=== PATIENT | male | born 1960 | race Hispanic/Latino ===

== ENCOUNTER 2016-06-03 10:13 | Emergency (ER) | payer MEDICARE ==
[2016-06-03] MEDS ORDERED: MOTRIN PO ONE (14:45)
--- NOTE | 2016-06-03 14:45 | Emergency Department Report ---
ED General Adult HPI - General Chief complaint: Neck Pain/Injury Stated complaint: RT SIDE NECK PAIN/NUMBNESS/WEAKNESS/PX IN RT ARM Time Seen by Provider: 06/03/16 14:11 Source: patient Mode of arrival: Ambulatory Limitations: No Limitations - History of Present Illness Initial comments: 55-year-old male comes and reports of neck pain stated that he gets shooting pain burning pains down his right arm. This has been present for about a month and a half. Patient denies any recent trauma as he reports that he is retired from being construction carpenters helper. Patient denies any change of vision no headache. She currently takes no medications no past medical history. Reports he has not seen a primary provider in greater than 5 years. She also complains of a tick bite to his left thigh. He denies any pain or discharge. -: month(s) (1.5) - Related Data Previous Rx's Medication Instructions Recorded Last Taken Type Metaxalone [Skelaxin] 800 mg PO TID #30 tablet 07/07/14 Unknown Rx oxyCODONE /ACETAMINOPHEN [Percocet 1 tab PO Q6HR PRN #20 tablet 07/07/14 Unknown Rx 5/325] Cyclobenzaprine HCl [Flexeril 5mg] 5 mg PO Q6HR #15 tablet 08/23/14 Unknown Rx Ibuprofen [Motrin 800 MG tab] 800 mg PO Q8H PRN #30 tablet 08/23/14 Unknown Rx Amoxicillin/K Clav Tab [Augmentin 1 tab PO BID #20 tablet 12/06/14 Unknown Rx 875MG TAB] Ibuprofen [Motrin 800 MG tab] 800 mg PO TID PRN #30 tablet 12/06/14 Unknown Rx traMADol [Ultram 50 MG tab] 50 mg PO Q6HR PRN #14 tablet 12/06/14 Unknown Rx Cyclobenzaprine [Flexeril] 10 mg PO TID #15 tablet 12/26/15 Unknown Rx Ibuprofen [Motrin 600 MG tab] 600 mg PO Q8H PRN #60 tablet 06/03/16 Unknown Rx Allergies Allergy/AdvReac Type Severity Reaction Status Date / Time codeine Allergy Itching Verified 07/07/14 17:49 gabapentin [From Neurontin] Allergy Anaphylaxis Verified 06/03/16 10:25 ED Review of Systems ROS: Stated complaint: RT SIDE NECK PAIN/NUMBNESS/WEAKNESS/PX IN RT ARM Other details as noted in HPI ED Past Medical Hx - Past Medical History Previous Medical History?: Yes Hx COPD: Yes Additional medical history: emphysema. CHRONIC BACK/HIP PAIN - Surgical History Past Surgical History?: Yes Additional Surgical History: total left hip replacement, right leg surgery - Social History Smoking Status: Current Every Day Smoker Substance Use Type: None - Medications Home Medications: Home Medications Medication Instructions Recorded Confirmed Last Taken Type Metaxalone [Skelaxin] 800 mg PO TID #30 tablet 07/07/14 Unknown Rx oxyCODONE /ACETAMINOPHEN [Percocet 1 tab PO Q6HR PRN #20 tablet 07/07/14 Unknown Rx 5/325] Cyclobenzaprine HCl [Flexeril 5mg] 5 mg PO Q6HR #15 tablet 08/23/14 Unknown Rx Ibuprofen [Motrin 800 MG tab] 800 mg PO Q8H PRN #30 tablet 08/23/14 Unknown Rx Amoxicillin/K Clav Tab [Augmentin 1 tab PO BID #20 tablet 12/06/14 Unknown Rx 875MG TAB] Ibuprofen [Motrin 800 MG tab] 800 mg PO TID PRN #30 tablet 12/06/14 Unknown Rx traMADol [Ultram 50 MG tab] 50 mg PO Q6HR PRN #14 tablet 12/06/14 Unknown Rx Cyclobenzaprine [Flexeril] 10 mg PO TID #15 tablet 12/26/15 Unknown Rx Ibuprofen [Motrin 600 MG tab] 600 mg PO Q8H PRN #60 tablet 06/03/16 Unknown Rx ED Physical Exam - General Limitations: No Limitations General appearance: alert, in no apparent distress - Head Head exam: Present: atraumatic, normocephalic - Eye Eye exam: Present: PERRL, EOMI Pupils: Present: normal accommodation - Neck Neck exam: Present: normal inspection, tenderness (paracervical tenderness to the right elicits pain down the right arm), full ROM - Respiratory Respiratory exam: Present: normal lung sounds bilaterally - Cardiovascular Cardiovascular Exam: Present: regular rate, normal rhythm, normal heart sounds - Expanded Upper Extremity Exam Right Shoulder Exam: Present: normal inspection, full ROM. Absent: tenderness, swelling, deformity Elbow exam: Present: normal inspection, full ROM. Absent: tenderness Neurosensory exam: Present: 2-point discrimination, radial nerve intact, ulnar nerve intact, median nerve intact - Neurological Exam Neurological exam: Present: alert, oriented X3, normal gait, motor sensory deficit, reflexes normal - Expanded Neurological Exam Expanded Cranial nerves: EOM's Intact: Normal, Gag Reflex: Normal, Tongue Deviation: Normal Cerebellar function: Finger to Nose: Normal, Heel to Burnette: Normal, Romberg: Normal Motor strength exam: RUE: 3, LUE: 4, RLE: 5, LLE: 5 - Psychiatric Psychiatric exam: Present: normal affect, normal mood - Skin Skin exam: Present: warm, dry, intact - Other Other exam information: Quarter size left thighs necrotic center with erythematous base non-indurated nontender no discharge lesion. ED Course Vital Signs 06/03/16 06/03/16 10:25 16:15 Temperature 98.3 F Pulse Rate 99 H 87 Respiratory 20 20 Rate Blood Pressure 143/80 Blood Pressure 148/86 [Right] O2 Sat by Pulse 98 98 Oximetry - Reevaluation(s) Reevaluation #1: 06/03/16 15:59 Reports he feels somewhat better after having pain medication. ED Medical Decision Making - Lab Data Vital Signs 06/03/16 10:25 Temperature 98.3 F Pulse Rate 99 H Respiratory 20 Rate Blood Pressure 143/80 O2 Sat by Pulse 98 Oximetry - Radiology Data Radiology results: report reviewed, image reviewed FINDINGS: Prevertebral soft tissues are without swelling. No evidence of cervical fracture or vertebral compression. Degenerative changes are multilevel at the vertebral endplates, facet joints, and uncinate joints. Nonspecific small fluid level in left sphenoid sinus. Anterolisthesis: None. Retrolisthesis: C2-3 slight, C3-4 slight Disc narrowing: C2-3 slight, C3-4 moderate, C6-7 slight Vertebral endplate, uncinate, and facet degenerative hypertrophic change is associated with left C2-3 and right C3-4 osseous neural foraminal stenosis. IMPRESSION: No acute skeletal pathology in the cervical spine Multilevel degenerative change, slight retrolisthesis, and disc narrowing Nonspecific fluid level in left sphenoid sinus may reflect acute sinusitis Critical care attestation.: If time is entered above; I have spent that time in minutes in the direct care of this critically ill patient, excluding procedure time. ED Disposition Clinical Impression: DJD (degenerative joint disease) of cervical spine Qualifiers: Spinal osteoarthritis complication: with radiculopathy Qualified Code(s): M47.22 - Other spondylosis with radiculopathy, cervical region Disposition: DISCHARGED TO HOME OR SELFCARE Is pt being admited?: No Does the pt Need Aspirin: No Condition: Stable Instructions: Cervical Spinal Stenosis (ED), Degenerative Disc Disease (ED) Additional Instructions: Medication as prescribed follow up with the neurologist orthopedic and primary care provider. Prescriptions: Ibuprofen [Motrin 600 MG tab] 600 mg PO Q8H PRN #60 tablet PRN Reason: Pain Referrals: PRIMARY CAREMD [Primary Care Provider] - 3-5 Days LOUIS CORTEZ MD [Staff Physician] - 3-5 Days [facility] [Provider Group] - 3-5 Days FELICIA GLOVER MD [Staff Physician] - 3-5 Days MERRICK DAVIS MD [Staff Physician] - 3-5 Days
--- NOTE | 2016-06-03 15:36 | Cat Scan Report ---
FINAL REPORT EXAM: CT CERVICAL SPINE WO CON HISTORY: neck pain with radiation TECHNIQUE: CT examination of the cervical spine without IV contrast PRIORS: None. FINDINGS: Prevertebral soft tissues are without swelling. No evidence of cervical fracture or vertebral compression. Degenerative changes are multilevel at the vertebral endplates, facet joints, and uncinate joints. Nonspecific small fluid level in left sphenoid sinus. Anterolisthesis: None. Retrolisthesis: C2-3 slight, C3-4 slight Disc narrowing: C2-3 slight, C3-4 moderate, C6-7 slight Vertebral endplate, uncinate, and facet degenerative hypertrophic change is associated with left C2-3 and right C3-4 osseous neural foraminal stenosis. IMPRESSION: No acute skeletal pathology in the cervical spine Multilevel degenerative change, slight retrolisthesis, and disc narrowing Nonspecific fluid level in left sphenoid sinus may reflect acute sinusitis
[2016-06-03 16:17] VITALS: BP 148/86
== END 2016-06-03 16:15 | disposition home or self-care (01) ==
LOC: ED 10:13
DX: M47.22 Other spondylosis with radiculopathy, cervical region (principal); Z88.8 Allergy status to other drugs, medicaments and biological substances; J44.9 Chronic obstructive pulmonary disease, unspecified; G89.29 Other chronic pain; F17.200 Nicotine dependence, unspecified, uncomplicated
CPT/HCPCS: 72125; 93005; 93010

== ENCOUNTER 2016-10-31 17:10 | Emergency (ER) | payer MEDICARE ==
--- NOTE | 2016-10-31 17:36 | Emergency Department Report ---
Stated Complaint: LT SHOULDER PAIN Time Seen by Provider: 10/31/16 17:34 - HPI History of Present Illness: Pt c/o L shoulder pain x 2 weeks. PT states he thinks it is swollen - ROS Review of Systems: - cp - fever - Exam Physical Exam: decreased rom to L shoulder MSE screening note: Focused history and physical exam performed. Due to findings the following was ordered: xr ED Disposition for MSE Condition: Stable
[2016-10-31 17:38] VITALS: BP 123/89
--- NOTE | 2016-10-31 19:18 | XRay Report ---
FINAL REPORT EXAM: XR SHOULDER 2+V LT HISTORY: pain x 2 weeks TECHNIQUE: 3 views of left shoulder. PRIORS: None. FINDINGS: Mild degenerative change in the acromioclavicular joint. No apparent fracture or dislocation. Soft tissues grossly unremarkable. IMPRESSION: 1. No acute osseous abnormality. 2. Degenerative changes.
[2016-10-31] MEDS ORDERED: BENADRYL PO ONE (20:11)
[2016-10-31] MEDS ORDERED: NORCO 5/325 PO ONE (20:11)
[2016-10-31] MEDS ORDERED: ZOFRAN ODT PO ONE (20:12)
--- NOTE | 2016-10-31 20:14 | Emergency Department Report ---
Upper Extremity - HPI Chief Complaint: Extremity Problem,Nontraumatic Stated Complaint: LT SHOULDER PAIN Time Seen by Provider: 10/31/16 17:34 Upper Extremity: Left Shoulder Severity: moderate Symptoms: Yes Pain with Movement (pain with shoulder abduction and adduction), Yes Limited Range of Movement (pain w/ shoulder abduction and adduction), No Deformity, No Numbness, No Weakness, No Swelling, No Bruising/Ecchymosis, No Laceration or Abrasion Other History: 55-year-old male past medical history hyperplasia, degenerative joint disease, osteoarthritis presents complaining of 2 weeks of persistent pain and left shoulder joint. Course with shoulder abduction and shoulder rotation. Denies any direct trauma no fevers or chills. no other complaints ED Review of Systems ROS: Stated complaint: LT SHOULDER PAIN Other details as noted in HPI Constitutional: denies: chills, fever Eyes: denies: eye pain, eye discharge, vision change ENT: denies: ear pain, throat pain Respiratory: denies: cough, shortness of breath, wheezing Cardiovascular: denies: chest pain, palpitations Endocrine: no symptoms reported Gastrointestinal: denies: abdominal pain, nausea, diarrhea Genitourinary: denies: urgency, dysuria Musculoskeletal: as per HPI, arthralgia (2 weeks left shoulder pain). denies: back pain, joint swelling Skin: denies: rash, lesions Neurological: denies: headache, weakness, paresthesias Psychiatric: denies: anxiety, depression Hematological/Lymphatic: denies: easy bleeding, easy bruising ED Past Medical Hx - Past Medical History Hx COPD: Yes Additional medical history: emphysema. CHRONIC BACK/HIP PAIN - Surgical History Additional Surgical History: total left hip replacement, right leg surgery - Social History Smoking Status: Current Every Day Smoker - Medications Home Medications: Home Medications Medication Instructions Recorded Confirmed Last Taken Type Metaxalone [Skelaxin] 800 mg PO TID #30 tablet 07/07/14 Unknown Rx oxyCODONE /ACETAMINOPHEN [Percocet 1 tab PO Q6HR PRN #20 tablet 07/07/14 Unknown Rx 5/325] Cyclobenzaprine HCl [Flexeril 5mg] 5 mg PO Q6HR #15 tablet 08/23/14 Unknown Rx Ibuprofen [Motrin 800 MG tab] 800 mg PO Q8H PRN #30 tablet 08/23/14 Unknown Rx Amoxicillin/K Clav Tab [Augmentin 1 tab PO BID #20 tablet 12/06/14 Unknown Rx 875MG TAB] Ibuprofen [Motrin 800 MG tab] 800 mg PO TID PRN #30 tablet 12/06/14 Unknown Rx traMADol [Ultram 50 MG tab] 50 mg PO Q6HR PRN #14 tablet 12/06/14 Unknown Rx Cyclobenzaprine [Flexeril] 10 mg PO TID #15 tablet 12/26/15 Unknown Rx Ibuprofen [Motrin 600 MG tab] 600 mg PO Q8H PRN #60 tablet 06/03/16 Unknown Rx Naproxen [Naprosyn TAB] 375 mg PO BID PRN #30 tablet 10/31/16 Unknown Rx traMADol [Ultram 50 MG tab] 50 mg PO Q6HR PRN #20 tablet 10/31/16 Unknown Rx Upper Extremity Exam - Exam General: Vital signs noted. No distress. Alert and acting appropriately. Head and Torso: No HEENT Abnormality, No Neck Tenderness, No Chest/Lungs Abnormality, No Abdominal Tenderness, No Back Tenderness Shoulder Exam: No Shoulder Tenderness, No Clavicle Tenderness, No Normal Range of Motion in Shoulder (pain with shoulder abduction above 90), No Shoulder Deformity, No AC Joint Tenderness Arm Exam: No Arm/Humerus Tenderness, No Arm Deformity Elbow: No Elbow Tenderness, No Normal Range of Motion in Elbow, No Elbow Deformity Forearm: No Forearm Tenderness, No Forearm Deformity, No Pain with Pronation, No Pain with Supination Wrist: Yes Normal ROM in Wrist, No Wrist Tenderness, No Wrist Deformity, No Snuffbox Tenderness, No Pain with Axial Thumb Compression Hand: Yes Normal ROM in Digit(s), No Hand Tenderness, No Hand Deformity, No Digit Tenderness, No Digit(s) Deformity, No Tendon Dysfunction CMS Exam: Yes Normal Distal Pulses (distal radial and ulnar pulses intact), Yes Normal Capillary Refill (capillary refill less than 1 second), No Broken Skin, No Normal Distal Sensation ED Course Vital Signs 10/31/16 17:32 Temperature 98.0 F Pulse Rate 105 H Respiratory 16 Rate Blood Pressure 123/89 O2 Sat by Pulse 97 Oximetry ED Medical Decision Making - Medical Decision Making A/P: Left shoulder rotator cuff tendinitis, degenerative joint disease/ osteoarthritis left shoulder 1-x-ray suggestive of degenerative changes in left AC joint. No fractures 2-naproxen when necessary, tramadol when necessary 3-follow up with primary care and orthopedics 4- left upper extremity neurovascularly intact Critical care attestation.: If time is entered above; I have spent that time in minutes in the direct care of this critically ill patient, excluding procedure time. 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 [Outside] - 3-5 Days Forms: Accompanied Note Time of Disposition: 20:20
== END 2016-10-31 20:39 | disposition home or self-care (01) ==
LOC: ED 17:10
DX: M19.212 Secondary osteoarthritis, left shoulder (principal); M25.512 Pain in left shoulder; J44.9 Chronic obstructive pulmonary disease, unspecified; F17.200 Nicotine dependence, unspecified, uncomplicated
CPT/HCPCS: Q0162

== ENCOUNTER 2017-08-28 18:27 | Emergency (ER) | payer MEDICARE ==
[2017-08-28 18:35] VITALS: BP 127/88
[2017-08-28 19:14] LABS: Basophils # (Auto) 0.1 K/mm3 (0.0-0.1); Basophils % (Auto) 0.3 % (0.0-1.8); Eosinophils % (Auto) 0.1 % (0.0-4.3); Hematocrit 51.3 % (35.5-45.6); Hemoglobin 16.4 gm/dl (11.8-15.2); Lymphocytes % (Auto) 12.1 % (13.4-35.0); Mean Corpuscular HGB Conc 32 % (32-34); Mean Corpuscular Hemoglobin 29 pg (28-32); Mean Corpuscular Volume 89 fl (84-94); Monocytes % (Auto) 6.4 % (0.0-7.3); Platelet Count 382 K/mm3 (140-440); Red Blood Count 5.77 M/mm3 (3.65-5.03); Red Cell Distribution Width 14.9 % (13.2-15.2)
[2017-08-28 19:22] LABS: Alanine Aminotransferase 11 units/L (7-56); Albumin 4.6 g/dL (3.9-5); BUN/Creatinine Ratio 14; Blood Urea Nitrogen 11 mg/dL (9-20); Calcium 9.8 mg/dL (8.4-10.2); Hemolysis Index 14
== END 2017-08-29 03:00 | disposition left against medical advice (07) ==
LOC: ED 18:27
DX: R10.9 Unspecified abdominal pain (principal); R11.10 Vomiting, unspecified; G89.29 Other chronic pain; Z88.5 Allergy status to narcotic agent; Z88.1 Allergy status to other antibiotic agents; F17.200 Nicotine dependence, unspecified, uncomplicated; Z53.21 Procedure and treatment not carried out due to patient leaving prior to being seen by health care provider
CPT/HCPCS: 36415; 80053; 85025

== ENCOUNTER 2018-06-08 13:19 | Emergency (ER) | payer MEDICARE ==
[2018-06-08 13:27] VITALS: BP 169/132
--- NOTE | 2018-06-08 13:27 | Emergency Department Report ---
Stated Complaint: LFT SIDE PAIN Time Seen by Provider: 06/08/18 13:25 - HPI History of Present Illness: dental pain left lower no trauma bad tooth no sob no cp hypertensive/tachycardic--- recheck in fast track no hx hypertension no hx tachy- not on prior admits rx breathing tx oxy 10 - sees pain md pmh copd pulm nodules pcp Luz Maria dmd none cig no etoh no drugs mse completed MSE screening note: Focused history and physical exam performed. Due to findings the following was ordered: ED Disposition for MSE Condition: Stable
[2018-06-08] MEDS ORDERED: PERCOCET 5/325 PO STA (15:02)
--- NOTE | 2018-06-08 15:09 | Emergency Department Report ---
ED ENT HPI - General Chief complaint: Dental/Oral Stated complaint: LFT SIDE PAIN Time Seen by Provider: 06/08/18 13:25 Source: patient Mode of arrival: Ambulatory Limitations: No Limitations - History of Present Illness MD complaint: tooth pain -: Sudden, days(s) (3 on this occurence but this is a chronic recurrent issue) Location: tooth # (left lower molar reigon ) Quality: dull Consistency: constant Improves with: none Worsens with: eating Context- Dental: history of dental caries, poor dental care Associated Symptoms: toothache. denies: sore throat, tinnitus, discharge from ear, rhinorrhea - Related Data Previous Rx's Medication Instructions Recorded Last Taken Type Albuterol Sulfate [Ventolin HFA] 2 puff IH Q4H PRN #1 hfa.aer.ad 02/27/18 Unknown Rx Ipratropium/Albuterol Sulfate 1 ampul IH Q12HRT 7 Days #30 02/27/18 Unknown Rx [DUONEB *Not for PRN Use*] ampul.neb oxyCODONE [Roxicodone TAB] 10 mg PO Q6H PRN tablet 02/27/18 Unknown Rx Amoxicillin 500 mg PO TID #21 capsule 06/08/18 Unknown Rx Chlorhexidine Mouthwash [Peridex] 15 ml MM BID #1 bottle 06/08/18 Unknown Rx Ketorolac [Toradol] 10 mg PO Q6H PRN #15 tablet 06/08/18 Unknown Rx Lidocaine Viscous 2% 5 ml MM Q3H PRN #120 udc 06/08/18 Unknown Rx Allergies Allergy/AdvReac Type Severity Reaction Status Date / Time codeine Allergy Itching Verified 06/08/18 13:27 gabapentin [From Neurontin] Allergy Anaphylaxis Verified 06/08/18 13:27 ED Dental HPI - General Chief complaint: Dental/Oral Stated complaint: LFT SIDE PAIN Time Seen by Provider: 06/08/18 13:25 Source: patient Mode of arrival: Ambulatory Limitations: No Limitations - Related Data Previous Rx's Medication Instructions Recorded Last Taken Type Albuterol Sulfate [Ventolin HFA] 2 puff IH Q4H PRN #1 hfa.aer.ad 02/27/18 Unknown Rx Ipratropium/Albuterol Sulfate 1 ampul IH Q12HRT 7 Days #30 12/26/18 Unknown Rx [DUONEB *Not for PRN Use*] ampul.neb oxyCODONE [Roxicodone TAB] 10 mg PO Q6H PRN tablet 02/27/18 Unknown Rx Amoxicillin 500 mg PO TID #21 capsule 06/08/18 Unknown Rx Chlorhexidine Mouthwash [Peridex] 15 ml MM BID #1 bottle 06/08/18 Unknown Rx Ketorolac [Toradol] 10 mg PO Q6H PRN #15 tablet 06/08/18 Unknown Rx Lidocaine Viscous 2% 5 ml MM Q3H PRN #120 udc 06/08/18 Unknown Rx Allergies Allergy/AdvReac Type Severity Reaction Status Date / Time codeine Allergy Itching Verified 06/08/18 13:27 gabapentin [From Neurontin] Allergy Anaphylaxis Verified 06/08/18 13:27 ED Review of Systems ROS: Stated complaint: LFT SIDE PAIN Other details as noted in HPI Constitutional: denies: chills, fever Eyes: denies: eye pain, eye discharge, vision change ENT: dental pain. denies: ear pain, throat pain Respiratory: denies: cough, shortness of breath, wheezing Cardiovascular: denies: chest pain, palpitations Endocrine: no symptoms reported Gastrointestinal: denies: abdominal pain, nausea, diarrhea Genitourinary: denies: urgency, dysuria Musculoskeletal: denies: back pain, joint swelling, arthralgia Skin: denies: rash, lesions Neurological: denies: headache, weakness, paresthesias Psychiatric: denies: anxiety, depression Hematological/Lymphatic: denies: easy bleeding, easy bruising ED Past Medical Hx - Past Medical History Previous Medical History?: Yes Hx COPD: Yes Additional medical history: emphysema. CHRONIC BACK/HIP PAIN - Surgical History Past Surgical History?: Yes Additional Surgical History: total left hip replacement, right leg surgery - Social History Smoking Status: Current Every Day Smoker Substance Use Type: None - Medications Home Medications: Home Medications Medication Instructions Recorded Confirmed Last Taken Type Albuterol Sulfate [Ventolin HFA] 2 puff IH Q4H PRN #1 hfa.aer.ad 02/27/18 Unknown Rx Ipratropium/Albuterol Sulfate 1 ampul IH Q12HRT 7 Days #30 02/27/18 Unknown Rx [DUONEB *Not for PRN Use*] ampul.neb oxyCODONE [Roxicodone TAB] 10 mg PO Q6H PRN tablet 02/27/18 Unknown Rx Amoxicillin 500 mg PO TID #21 capsule 06/08/18 Unknown Rx Chlorhexidine Mouthwash [Peridex] 15 ml MM BID #1 bottle 06/08/18 Unknown Rx Ketorolac [Toradol] 10 mg PO Q6H PRN #15 tablet 06/08/18 Unknown Rx Lidocaine Viscous 2% 5 ml MM Q3H PRN #120 udc 06/08/18 Unknown Rx ED Physical Exam - General Limitations: No Limitations General appearance: alert, in no apparent distress - Head Head exam: Present: atraumatic, normocephalic - Eye Eye exam: Present: normal appearance, PERRL, EOMI - ENT ENT exam: Present: mucous membranes moist, other (dental caries diffuse noted with swelling to left mandible region. tenderness) - Neck Neck exam: Present: normal inspection, full ROM. Absent: lymphadenopathy, thyromegaly - Respiratory Respiratory exam: Present: normal lung sounds bilaterally. Absent: respiratory distress, wheezes, chest wall tenderness, accessory muscle use, decreased breath sounds - Cardiovascular Cardiovascular Exam: Present: regular rate, normal rhythm, normal heart sounds. Absent: bradycardia, systolic murmur, diastolic murmur, rubs, gallop - GI/Abdominal GI/Abdominal exam: Present: soft, normal bowel sounds. Absent: tenderness, guarding, rebound, hyperactive bowel sounds, hypoactive bowel sounds, organomegaly - Rectal Rectal exam: Present: deferred - Extremities Exam Extremities exam: Present: normal inspection, normal capillary refill - Back Exam Back exam: Present: normal inspection, CVA tenderness (L). Absent: CVA tenderness (R) - Neurological Exam Neurological exam: Present: alert, oriented X3, CN II-XII intact, motor sensory deficit. Absent: normal gait - Psychiatric Psychiatric exam: Present: normal affect, normal mood. Absent: flat affect, manic - Skin Skin exam: Present: warm, dry, intact, normal color. Absent: rash, cyanosis, diaphoretic, erythema, petechiae, pallor, abrasion ED Course Vital Signs 06/08/18 13:25 Temperature 98.1 F Pulse Rate 119 H Respiratory 18 Rate Blood Pressure 169/132 O2 Sat by Pulse 98 Oximetry Critical care attestation.: If time is entered above; I have spent that time in minutes in the direct care of this critically ill patient, excluding procedure time. ED Disposition Clinical Impression: Dentalgia, Infected dental caries Disposition: TO HOME OR SELFCARE Is pt being admited?: No Does the pt Need Aspirin: No Condition: Stable Instructions: Dental Caries (ED), Toothache (ED) Referrals: RICK ZARCO MD [Primary Care Provider] - 3-5 Days [facility] [Outside] - 3-5 Days
== END 2018-06-08 15:47 | disposition home or self-care (01) ==
LOC: ED 13:19
DX: K02.9 Dental caries, unspecified (principal); K04.7 Periapical abscess without sinus; J44.9 Chronic obstructive pulmonary disease, unspecified; F17.200 Nicotine dependence, unspecified, uncomplicated; Z88.5 Allergy status to narcotic agent; Z88.8 Allergy status to other drugs, medicaments and biological substances
CPT/HCPCS: 99282

== ENCOUNTER 2018-06-13 09:46 | Outpatient (CLI) | payer MEDICARE ==
[2018-06-13 10:40] LABS: BUN/Creatinine Ratio 13; Blood Urea Nitrogen 14 mg/dL (9-20); Hemolysis Index 5
== END 2018-06-13 09:47 | disposition home or self-care (01) ==
LOC: LAB 09:46
PROVIDERS: ATTEND Internal Medicine
DX: R91.8 Other nonspecific abnormal finding of lung field (principal); J44.9 Chronic obstructive pulmonary disease, unspecified
CPT/HCPCS: 36415; 80048

== ENCOUNTER 2018-07-12 09:57 | Outpatient (CLI) | payer MEDICARE ==
[2018-07-12 11:17] LABS: Blood Urea Nitrogen 12 mg/dL (9-20)
--- NOTE | 2018-07-12 17:44 | Cat Scan Report ---
PROCEDURE: CT CHEST W CON TECHNIQUE: Standard enhanced CT of the chest at 2.5 mm axial increments. Coronal and sagittal recons tructions were obtained. CT DOSE LENGTH PRODUCT: 519.9 mGycm HISTORY: FOLLOW UP ON MULTIPLE PULMONARY NODULES COMPARISON: CT chest 02/24/2018 FINDINGS: Bullous changes are present in the apices of both lungs. Findings suggest underlying emphysema. There are numerous uncalcified parenchymal nodules and pleural-based nodules scattered throughout the right lung which are all stable. The largest is 1.0 cm in the lateral right lower lobe. Otherwise, the lung parenchyma are expanded and clear with no evidence for parenchymal infiltrates, v ascular congestion, pleural effusion, or pneumothorax. There is no evidence for mediastinal, hilar, or axillary adenopathy. The esophagus is collapsed. The trachea is midline. Cardiovascular structures are within normal limits. Cardiac size and aorta are normal. Images through the lung bases include upper abdomen which show punctate calcified granulomas scattere d in the spleen, stable. Bony structures show no focal abnormalities. No evidence for bony fracture is seen. IMPRESSION: 1. Stable exam. Multiple pulmonary nodules again noted which are unchanged. Continued serial CT follo w-up is recommended to confirm stability over 2 years. 2. Underlying emphysematous changes in the upper lobes This document is electronically signed by Carolina Dykes MD., Jul 12 2018 05:42:55 PM ET
== END 2018-07-12 09:58 | disposition home or self-care (01) ==
LOC: CT 09:57
PROVIDERS: ATTEND Internal Medicine
DX: R91.8 Other nonspecific abnormal finding of lung field (principal); J43.9 Emphysema, unspecified
CPT/HCPCS: 36415; 71260; 82565; 84520; Q9967

== ENCOUNTER 2018-08-28 17:09 | Emergency (ER) | payer MEDICARE ==
[2018-08-28 17:34] VITALS: BP 115/75
--- NOTE | 2018-08-28 17:35 | Emergency Department Report ---
Blank Doc - Documentation Documentation: 57 y o male was sent by PCP due to elevated pottasium denies chest pain labs
[2018-08-28 18:48] LABS: BUN/Creatinine Ratio 15; Blood Urea Nitrogen 16 mg/dL (9-20); Calcium 9.3 mg/dL (8.4-10.2); Hemolysis Index 15
== END 2018-08-28 18:00 | disposition left against medical advice (07) ==
LOC: ED 17:09
DX: E87.6 Hypokalemia (principal); Z53.21 Procedure and treatment not carried out due to patient leaving prior to being seen by health care provider
CPT/HCPCS: 36415; 80048

== ENCOUNTER 2018-11-01 14:15 | Emergency (ER) | payer MEDICARE ==
--- NOTE | 2018-11-01 14:28 | Event Note ---
ED Screening Note ED Screening Note: abscess on scrotum This initial assessment/diagnostic orders/clinical plan/treatment(s) is/are subject to change based on patients health status, clinical progression and re- assessment by fellow clinical providers in the ED. Further treatment and workup at subsequent clinical providers discretion. Patient/guardian urged not to elope from the ED as their condition may be serious if not clinically assessed and managed. Initial orders include: ACC for eval
[2018-11-01 15:29] LABS: Hematocrit 47.3 % (35.5-45.6); Hemoglobin 15.7 gm/dl (11.8-15.2); Mean Corpuscular HGB Conc 33 % (32-34); Mean Corpuscular Volume 91 fl (84-94); Platelet Count 349 K/mm3 (140-440); Red Blood Count 5.22 M/mm3 (3.65-5.03); Red Cell Distribution Width 15.4 % (13.2-15.2)
[2018-11-01 15:41] LABS: BUN/Creatinine Ratio 13; Blood Urea Nitrogen 15 mg/dL (9-20); Calcium 9.3 mg/dL (8.4-10.2); Hemolysis Index 17
[2018-11-01] MEDS ORDERED: IBUPROFEN PO ONE (15:54)
--- NOTE | 2018-11-01 17:56 | Emergency Department Report ---
ED Male HPI - General Chief complaint: Urogenital-Male Stated complaint: GENITALS DISCOMFORT Time Seen by Provider: 11/01/18 14:27 Source: patient Mode of arrival: Ambulatory Limitations: No Limitations - History of Present Illness Initial comments: 57-year-old male comes in complaining of a bump on his right testicle 3 weeks. Patient reports that he had leaked clear fluid today. Patient denies any pain swelling or redness. Denies any fever chills no nausea no vomiting. Patient has a past medical history of COPD. Onset/Timin -: week(s) Location: right testicle denies other symptoms - Related Data Previous Rx's Medication Instructions Recorded Last Taken Type Albuterol Sulfate [Ventolin HFA] 2 puff IH Q4H PRN #1 hfa.aer.ad 02/27/18 Unknown Rx Ipratropium/Albuterol Sulfate 1 ampul IH Q12HRT 7 Days #30 02/27/18 Unknown Rx [DUONEB *Not for PRN Use*] ampul.neb oxyCODONE [roxiCODONE] 10 mg PO Q6H PRN tablet 02/27/18 Unknown Rx Amoxicillin 500 mg PO TID #21 capsule 06/08/18 Unknown Rx Chlorhexidine Mouthwash [Peridex] 15 ml MM BID #1 bottle 06/08/18 Unknown Rx Ketorolac [Toradol] 10 mg PO Q6H PRN #15 tablet 06/08/18 Unknown Rx Lidocaine Viscous 2% 5 ml MM Q3H PRN #120 udc 06/08/18 Unknown Rx Allergies Allergy/AdvReac Type Severity Reaction Status Date / Time codeine Allergy Itching Verified 06/08/18 13:27 gabapentin [From Neurontin] Allergy Anaphylaxis Verified 06/08/18 13:27 ED Review of Systems ROS: Stated complaint: GENITALS DISCOMFORT Other details as noted in HPI Comment: All other systems reviewed and negative Skin: lesions ED Past Medical Hx - Past Medical History Previous Medical History?: Yes Hx COPD: Yes Additional medical history: CHRONIC BACK/HIP PAIN with pain management. - Surgical History Past Surgical History?: Yes Additional Surgical History: total left hip replacement, right leg surgery - Social History Smoking Status: Never Smoker Substance Use Type: None - Medications Home Medications: Home Medications Medication Instructions Recorded Confirmed Last Taken Type Albuterol Sulfate [Ventolin HFA] 2 puff IH Q4H PRN #1 hfa.aer.ad 02/27/18 Unknown Rx Ipratropium/Albuterol Sulfate 1 ampul IH Q12HRT 7 Days #30 02/27/18 Unknown Rx [DUONEB *Not for PRN Use*] ampul.neb oxyCODONE [roxiCODONE] 10 mg PO Q6H PRN tablet 02/27/18 Unknown Rx Amoxicillin 500 mg PO TID #21 capsule 06/08/18 Unknown Rx Chlorhexidine Mouthwash [Peridex] 15 ml MM BID #1 bottle 06/08/18 Unknown Rx Ketorolac [Toradol] 10 mg PO Q6H PRN #15 tablet 06/08/18 Unknown Rx Lidocaine Viscous 2% 5 ml MM Q3H PRN #120 udc 06/08/18 Unknown Rx ED Physical Exam - General Limitations: No Limitations General appearance: alert, in no apparent distress - Head Head exam: Present: atraumatic, normocephalic - exam: Present: other (bump on Right testicle nonerythematous and nonedematous not indurated non-tenderness to palpation no discharge appreciated). Absent: scrotal swelling ED Course Vital Signs 11/01/18 14:22 Temperature 97.7 F Pulse Rate 105 H Respiratory 16 Rate Blood Pressure 128/87 O2 Sat by Pulse 95 Oximetry ED Medical Decision Making - Lab Data Result diagrams: 11/01/18 15:02 11/01/18 15:02 - Medical Decision Making 57-year-old male comes in complaining of a bump on his right testicle 3 weeks. Patient reports that he had leaked clear fluid today. Patient denies any pain swelling or redness. Denies any fever chills no nausea no vomiting. Patient has a past medical history of COPD. discussed with the patient to follow up with his primary care provider. No further evaluation in the emergency room as necessary. Critical care attestation.: If time is entered above; I have spent that time in minutes in the direct care of this critically ill patient, excluding procedure time. ED Disposition Clinical Impression: Bumps on skin Disposition: DC-01 TO HOME OR SELFCARE Is pt being admited?: No Does the pt Need Aspirin: No Condition: Stable Additional Instructions: Please follow up to primary care provider or occasional caregiver. Referrals: PRIMARY CARE, [Primary Care Provider] - 3-5 Days Your,Provider [Other] - 3-5 Days
[2018-11-01 18:21] VITALS: BP 107/76
== END 2018-11-01 18:21 | disposition home or self-care (01) ==
LOC: ED 14:15
DX: L02.828 Furuncle of other sites (principal); J44.9 Chronic obstructive pulmonary disease, unspecified; G89.29 Other chronic pain; Z79.899 Other long term (current) drug therapy; Z88.6 Allergy status to analgesic agent; Z96.642 Presence of left artificial hip joint
CPT/HCPCS: 36415; 80048; 85027

== ENCOUNTER 2018-11-07 07:47 | Outpatient (CLI) | payer MEDICARE ==
--- NOTE | 2018-11-07 15:27 | PET Report ---
PET SB TO MT INITIAL HISTORY: R91.8. Bilateral pulmonary nodules TECHNIQUE: The patient's fasting blood glucose was 109. The patient weighed 137 lbs. The patient w as injected with 14.3 mCi of FDG in the left antecubital fossa at 0850 hours and imaging was started at 0944 hours. The patient was imaged from the skull base to the thighs. All CT scans at this locati on are performed using CT dose reduction for ALARA by means of automated exposure control.. COMPARISON: No previous PET scan. Correlation is made with CT chest report dated 07/12/2018 FINDINGS: FDG findings: There is physiologic distribution of the radiotracer throughout. No abnormal areas of increased radiotracer accumulation are identified. Tiny subpleural pulmonary nodules bilaterally are hypometabolic with maximum SUV measuring 0.7. Mean liver SUV measures 3.1. Non-FDG findings: Scattered millimetric subpleural pulmonary densities are again identified bilatera lly. There are approximately 5 or 6 densities in each lung. No large lung mass. Emphysematous changes in the upper lung zones is again noted. Heart and mediastinal structures are unremarkable. The liver , biliary system, pancreas, spleen, kidneys, adrenal glands and bowel loops are unremarkable. The lidia dder is within normal limits. No abdominal adenopathy, inflammation or ascites. The bony structures a re intact. Left hip replacement and internal stabilization of the right femoral neck are noted. IMPRESSION: Negative PET/CT. Signer Name: Manolo Smiley Jr, MD Signed: 11/07/2018 3:23 PM Workstation Name: [id number]
== END 2018-11-07 07:48 | disposition home or self-care (01) ==
LOC: PET 07:47
PROVIDERS: ATTEND Internal Medicine
DX: R91.8 Other nonspecific abnormal finding of lung field (principal); J44.9 Chronic obstructive pulmonary disease, unspecified
CPT/HCPCS: 78815; 82962; A9552

== ENCOUNTER 2020-09-17 14:30 | Emergency (ER) | payer MEDICARE ==
[2020-09-17 14:44] VITALS: BP 132/66
--- NOTE | 2020-09-17 15:44 | Emergency Department Report ---
HPI - General Chief Complaint: Allergic Reaction Time Seen by Provider: 09/17/20 15:28 - HPI HPI: Room 41 The patient is a 59-year-old male present with a chief complaint of allergic reaction to bee sting. The patient states he was sitting in a carport with friends when he noticed a yellow jacket landed on his left wrist. Patient states he chewed it away and did not feel it staying however his left wrist began tingling and then when he stood up he felt dizzy had blurred vision had chest tightness and shortness of breath. Patient states he then awakened on the ground. EMS arrived on scene and administered epinephrine Solu-Medrol Benadryl. The patient states he feels much improved after the medication and is currently asymptomatic ED Past Medical Hx - Past Medical History Hx COPD: Yes Additional medical history: CHRONIC BACK/HIP PAIN with pain management. - Surgical History Additional Surgical History: total left hip replacement, right leg surgery - Family History Family history: no significant - Social History Smoking Status: Current Every Day Smoker (1/2 pack/day) Substance Use Type: Alcohol (Rarely) - Medications Home Medications: Home Medications Medication Instructions Recorded Confirmed Last Taken Type Albuterol Sulfate [Ventolin HFA] 2 puff IH Q4H PRN #1 hfa.aer.ad 02/27/18 Unknown Rx Ipratropium/Albuterol Sulfate 1 ampul IH Q12HRT 7 Days #30 02/27/18 Unknown Rx [DUONEB *Not for PRN Use*] ampul.neb oxyCODONE [roxiCODONE] 10 mg PO Q6H PRN tablet 02/27/18 Unknown Rx Amoxicillin 500 mg PO TID #21 capsule 06/08/18 Unknown Rx Chlorhexidine Mouthwash [Peridex] 15 ml MM BID #1 bottle 06/08/18 Unknown Rx Ketorolac [Toradol] 10 mg PO Q6H PRN #15 tablet 06/08/18 Unknown Rx Lidocaine Viscous 2% 5 ml MM Q3H PRN #120 udc 06/08/18 Unknown Rx EPINEPHrine [Epipen 2-David] 0.3 mg IM ONCE PRN #0.6 ml 09/17/20 Unknown Rx Famotidine [Pepcid] 20 mg PO BID #6 tablet 09/17/20 Unknown Rx Prednisone [predniSONE 10 mg 10 mg PO .TAPER #1 tab.ds.pk 09/17/20 Unknown Rx (6-Day Pack, 21 Tabs)] diphenhydrAMINE [Benadryl CAP] 50 mg PO Q6HR #24 capsule 09/17/20 Unknown Rx ED Review of Systems ROS: Stated complaint: ALLERGIC REACTION Other details as noted in HPI Constitutional: no symptoms reported Eyes: denies: eye pain ENT: denies: throat pain Respiratory: shortness of breath Cardiovascular: chest pain Endocrine: no symptoms reported Gastrointestinal: denies: abdominal pain Genitourinary: denies: dysuria Musculoskeletal: denies: back pain Neurological: other (Lightheadedness) Physical Exam - Physical Exam Vital Signs: Vital Signs 09/17/20 14:39 Temperature 97.8 F Pulse Rate 92 H Respiratory 20 Rate Blood Pressure 132/66 [Right] O2 Sat by Pulse 93 Oximetry Physical Exam: GENERAL: The patient is well-developed well-nourished male lying on stretcher not appearing to be in acute distress. [] HEENT: Normocephalic. Atraumatic. Extraocular motions are intact. Patient has moist mucous membranes. NECK: Supple. Trachea midline CHEST/LUNGS: Clear to auscultation. There is no respiratory distress noted. HEART/CARDIOVASCULAR: Regular. There is no tachycardia. There is no gallop rub or murmur. ABDOMEN: Abdomen is soft, nontender. Patient has normal bowel sounds. There is no abdominal distention. SKIN: There is no rash. There is no edema. There is no diaphoresis. Left wrist inspected using otoscope. No stinger visualized NEURO: The patient is awake, alert, and oriented. The patient is cooperative. The patient has no focal neurologic deficits. The patient has normal speech MUSCULOSKELETAL: There is no evidence of acute injury. ED Course Vital Signs 09/17/20 14:39 Temperature 97.8 F Pulse Rate 92 H Respiratory 20 Rate Blood Pressure 132/66 [Right] O2 Sat by Pulse 93 Oximetry - Reevaluation(s) Reevaluation #1: 09/17/20 17:54 Patient remains asymptomatic and ready to go home. ED Medical Decision Making - Lab Data Result diagrams: 09/17/20 16:09 09/17/20 16:09 Laboratory Tests 09/17/20 09/17/20 16:09 16:09 WBC 27.8 H RBC 5.11 H Hgb 15.0 Hct 46.6 H MCV 91 MCH 29 MCHC 32 RDW 14.3 Plt Count 332 Add Manual Diff Complete Total Counted 100 Seg Neuts % (Manual) 85.0 H Lymphocytes % (Manual) 5.0 L Monocytes % (Manual) 10.0 H Nucleated RBC % Not Reportable Seg Neutrophils # Man 23.6 H Band Neutrophils # 0.0 Lymphocytes # (Manual) 1.4 Abs React Lymphs (Man) 0.0 Monocytes # (Manual) 2.8 H Eosinophils # (Manual) 0.0 Basophils # (Manual) 0.0 Metamyelocytes # 0.0 Myelocytes # 0.0 Promyelocytes # 0.0 Blast Cells # 0.0 WBC Morphology Not Reportable Hypersegmented Neuts Not Reportable Hyposegmented Neuts Not Reportable Hypogranular Neuts Not Reportable Smudge Cells Not Reportable Toxic Granulation Not Reportable Toxic Vacuolation Not Reportable Dohle Bodies Not Reportable Pelger-Huet Anomaly Not Reportable Ghazala Rods Not Reportable Platelet Estimate Not Reportable Clumped Platelets Not Reportable Plt Clumps, EDTA Not Reportable Large Platelets Not Reportable Giant Platelets Not Reportable Platelet Satelliting Not Reportable Plt Morphology Comment Not Reportable RBC Morphology Normal Dimorphic RBCs Not Reportable Polychromasia Not Reportable Hypochromasia Not Reportable Poikilocytosis Not Reportable Anisocytosis Not Reportable Microcytosis Not Reportable Macrocytosis Not Reportable Spherocytes Not Reportable Pappenheimer Bodies Not Reportable Sickle Cells Not Reportable Target Cells Not Reportable Tear Drop Cells Not Reportable Ovalocytes Not Reportable Helmet Cells Not Reportable [place] Bodies Not Reportable Atkinson Rings Not Reportable Horner Cells Not Reportable Bite Cells Not Reportable Crenated Cell Not Reportable Elliptocytes Not Reportable Acanthocytes (Spur) Not Reportable Rouleaux Not Reportable Hemoglobin C Crystals Not Reportable Schistocytes Not Reportable Malaria parasites Not Reportable Vimal Bodies Not Reportable Hem Pathologist Commnt No Sodium 137 Potassium 4.4 Chloride 100.5 Carbon Dioxide 25 Anion Gap 16 BUN 22 H Creatinine 1.3 Estimated GFR 56 BUN/Creatinine Ratio 17 Glucose 162 H Calcium 9.1 Total Creatine Kinase 159 CK-MB (CK-2) 3.2 CK-MB (CK-2) Rel Index 2.0 Troponin T < 0.010 - EKG Data -: EKG Interpreted by Me EKG shows normal: sinus rhythm Rate: normal - EKG Data When compared to previous EKG there are: previous EKG unavailable Interpretation: other (PVCs) - Differential Diagnosis Hymenoptera reaction Critical care attestation.: If time is entered above; I have spent that time in minutes in the direct care of this critically ill patient, excluding procedure time. ED Disposition Clinical Impression: Hymenoptera reaction, Leukocytosis Disposition: DC- TO HOME OR SELFCARE Is pt being admited?: No Does the pt Need Aspirin: No Condition: Stable Additional Instructions: Return to the emergency department should you develop worsening symptoms, inability to tolerate food or liquids, high fever or any other concerns Prescriptions: diphenhydrAMINE [Benadryl CAP] 50 mg PO Q6HR #24 capsule EPINEPHrine [Epipen 2-David] 0.3 mg IM ONCE PRN #0.6 ml PRN Reason: Anaphylaxis Famotidine [Pepcid] 20 mg PO BID #6 tablet Prednisone [predniSONE 10 mg (6-Day Pack, 21 Tabs)] 10 mg PO .TAPER #1 tab.ds.pk Referrals: PRIMARY CARE, [Primary Care Provider] - 3-5 Days SANJAY PRABHAKAR MD [Staff Physician] - 3-5 Days (Dr Prabhakar is a certification officer. Please follow-up with him for further evaluation) RAJNI SOMMER MD [Staff Physician] - 3-5 Days (Dr. Sommer is a primary physician. Please follow-up with him to be established as a patient.) Time of Disposition: 17:54
[2020-09-17 16:20] LABS: Hematocrit 46.6 % (35.5-45.6); Mean Corpuscular HGB Conc 32 % (32-34); Mean Corpuscular Volume 91 fl (84-94); Platelet Count 332 K/mm3 (140-440); Red Blood Count 5.11 M/mm3 (3.65-5.03); Red Cell Distribution Width 14.3 % (13.2-15.2)
[2020-09-17] MEDS ORDERED: SODIUM CHLORIDE 0.9% 1000 ML 1,000 ML IV ONE (16:40)
[2020-09-17 16:41] LABS: Creatine Kinase MB 3.2 ng/mL (0.0-4.0)
[2020-09-17 16:42] LABS: BUN/Creatinine Ratio 17; Blood Urea Nitrogen 22 mg/dL (9-20); Calcium 9.1 mg/dL (8.4-10.2); Hemolysis Index 10
[2020-09-17 17:29] LABS: Total Cells Counted 100
[2020-09-17 17:30] LABS: RBC Morphology Normal
--- NOTE | 2020-09-21 09:07 | Electrocardiograph Report ---
[facility] Test Date: 2020-09-17 Test Time: 17:16:55 Pat Name: RAMILA AHUMADA Department: Room: Gender: M [employer] Modeler: CHANNING : 1960 Requested By: ALANNA PAINTING Order Number: [id number] Reading MD: Nixon Jones Measurements Intervals [place] Rate: 88 P: 85 ME: 150 QRS: 84 QRSD: 86 T: 78 QT: 371 QTc: 454 Interpretive Statements Sinus rhythm Multiple ventricular premature complexes No previous ECG available for comparison Electronically Signed On 09-21-2020 9:07:46 EDT by Nixon Jones
== END 2020-09-17 18:15 | disposition home or self-care (01) ==
LOC: ED 14:30
DX: T63.441A Toxic effect of venom of bees, accidental (unintentional), initial encounter (principal); D72.829 Elevated white blood cell count, unspecified; J44.9 Chronic obstructive pulmonary disease, unspecified; F17.200 Nicotine dependence, unspecified, uncomplicated; Z79.899 Other long term (current) drug therapy; Z88.8 Allergy status to other drugs, medicaments and biological substances; Y92.89 Other specified places as the place of occurrence of the external cause
CPT/HCPCS: 36415; 80048; 82550; 82553; 84484; 85007; 85025; 93005; 96360; 99284; J7030

== ENCOUNTER 2021-06-19 09:19 | Emergency (ER) | payer SELFPAY ==
[2021-06-19 10:02] VITALS: BP 120/98
--- NOTE | 2021-06-19 10:27 | XRay Report ---
RIGHT SHOULDER, 3 VIEWS INDICATION / CLINICAL INFORMATION: R shoulder pain. COMPARISON: None available. FINDINGS: No fracture or dislocation noted. Very mild degenerative changes are present in the glenohumeral join t and AC joint. No soft tissue calcification or other abnormality noted. IMPRESSION: Very mild degenerative change, age appropriate. No other significant finding. Signer Name: Domenica Brock MD Signed: 06/19/2021 10:23 AM Workstation Name: [id number]
[2021-06-19] MEDS ORDERED: CYCLOBENZAPRINE 10 MG TAB PO ONE (10:48)
[2021-06-19] MEDS ORDERED: KETOROLAC 10 MG TAB PO ONE (10:48)
[2021-06-19] MEDS ORDERED: DEXAMETHASONE 4 MG TAB PO ONE (10:48)
--- NOTE | 2021-06-19 10:51 | Emergency Department Report ---
Upper Extremity - HPI Chief Complaint: Extremity Injury, Upper Stated Complaint: RT SHOULDER PAIN Time Seen by Provider: 06/19/21 10:26 Upper Extremity: Right Shoulder Occurred When: 3 Days Mechanism: Unsure Severity: severe Symptoms: Yes Pain with Movement, Yes Limited Range of Movement, No Deformity, No Numbness, No Weakness, No Swelling, No Bruising/Ecchymosis, No Laceration or Abrasion Other History: 60-year-old white male with a past medical history of COPD presents to the emergency department for evaluation of 3-day history of right shoulder and arm pain. He states that he was out shopping 3 days ago and got a sudden pain to his right shoulder and it has been persistent since then. He denies any injury. ED Review of Systems ROS: Stated complaint: RT SHOULDER PAIN Other details as noted in HPI Comment: All other systems reviewed and negative Constitutional: denies: chills, fever Eyes: denies: vision change ENT: denies: congestion Respiratory: denies: cough, shortness of breath Cardiovascular: denies: chest pain, palpitations Gastrointestinal: denies: abdominal pain, nausea, vomiting Musculoskeletal: back pain (Right upper) Neurological: denies: headache, weakness, numbness, paresthesias, abnormal gait, vertigo ED Past Medical Hx - Past Medical History Hx COPD: Yes Additional medical history: CHRONIC BACK/HIP PAIN with pain management. - Surgical History Additional Surgical History: total left hip replacement, right leg surgery - Social History Smoking Status: Current Every Day Smoker (1/2 pack/day) Substance Use Type: Alcohol (Rarely) - Medications Home Medications: Home Medications Medication Instructions Recorded Confirmed Last Taken Type Albuterol Sulfate [Ventolin HFA] 2 puff IH Q4H PRN #1 hfa.aer.ad 02/27/18 Unknown Rx Ipratropium/Albuterol Sulfate 1 ampul IH Q12HRT 7 Days #30 02/27/18 Unknown Rx [DUONEB *Not for PRN Use*] ampul.neb oxyCODONE [roxiCODONE] 10 mg PO Q6H PRN tablet 02/27/18 Unknown Rx Amoxicillin 500 mg PO TID #21 capsule 06/08/18 Unknown Rx Chlorhexidine Mouthwash [Peridex] 15 ml MM BID #1 bottle 06/08/18 Unknown Rx Ketorolac [Toradol] 10 mg PO Q6H PRN #15 tablet 06/08/18 Unknown Rx Lidocaine Viscous 2% 5 ml MM Q3H PRN #120 udc 06/08/18 Unknown Rx EPINEPHrine [Epipen 2-David] 0.3 mg IM ONCE PRN #0.6 ml 09/17/20 Unknown Rx Famotidine [Pepcid] 20 mg PO BID #6 tablet 09/17/20 Unknown Rx Prednisone [predniSONE 10 mg 10 mg PO .TAPER #1 tab.ds.pk 09/17/20 Unknown Rx (6-Day Pack, 21 Tabs)] diphenhydrAMINE [Benadryl CAP] 50 mg PO Q6HR #24 capsule 09/17/20 Unknown Rx Cyclobenzaprine [Flexeril] 10 mg PO TID PRN #21 tab 06/19/21 Unknown Rx Lidocaine [Lidoderm] 1 each TP DAILY PRN #10 patch 06/19/21 Unknown Rx Naproxen [Naprosyn] 500 mg PO BID #14 tab 06/19/21 Unknown Rx Upper Extremity Exam - Exam General: Vital signs noted. No distress. Alert and acting appropriately. Head and Torso: Yes Neck Tenderness (Right side), Yes Back Tenderness (Right upper), No HEENT Abnormality, No Chest/Lungs Abnormality, No Abdominal Tenderness Shoulder Exam: Yes Shoulder Tenderness (Right), Yes Clavicle Tenderness (Right), Yes AC Joint Tenderness, No Normal Range of Motion in Shoulder, No Shoulder Deformity Arm Exam: No Arm/Humerus Tenderness, No Arm Deformity Elbow: Yes Normal Range of Motion in Elbow, No Elbow Tenderness, No Elbow Deformity Forearm: No Forearm Tenderness, No Forearm Deformity, No Pain with Pronation, No Pain with Supination Wrist: Yes Normal ROM in Wrist, No Wrist Tenderness, No Wrist Deformity, No Snuffbox Tenderness Hand: No Hand Tenderness, No Hand Deformity, No Digit Tenderness CMS Exam: Yes Normal Distal Pulses, Yes Normal Capillary Refill, Yes Normal Distal Sensation, No Broken Skin Front/Back of Body, Lg (Color): 1 - Tenderness to palpation and increased pain with movement 2 - Tenderness to palpation and increased pain with movement ED Course Vital Signs 06/19/21 10:00 Temperature 97.8 F Pulse Rate 97 H Respiratory 16 Rate Blood Pressure 120/98 [Left] O2 Sat by Pulse 97 Oximetry ED Medical Decision Making - Radiology Data Radiology results: report reviewed, image reviewed interpreted by me: Right shoulder x-ray: FINDINGS: No fracture or dislocation noted. Very mild degenerative changes are present in the glenohumeral joint and AC joint. No soft tissue calcification or other abnormality noted. IMPRESSION: Very mild degenerative change, age appropriate. No other significant finding. - Medical Decision Making 60-year-old white male with a past medical history of COPD presents to the emergency department for evaluation of 3-day history of right shoulder and arm pain. He states that he was out shopping 3 days ago and got a sudden pain to his right shoulder and it has been persistent since then. He denies any injury. Right shoulder x-ray without any acute abnormalities noted and assessment consistent with musculoskeletal pain only. Patient will be treated with a one- time dose of Decadron, Toradol, and Flexeril in the emergency department and discharged home with naproxen, Flexeril, and lidocaine patches to use as needed for pain. He is advised to take medications as prescribed and follow-up with primary care provider if no improvement or worsening symptoms. Critical care attestation.: If time is entered above; I have spent that time in minutes in the direct care of this critically ill patient, excluding procedure time. ED Disposition Clinical Impression: Right shoulder pain Qualifiers: Chronicity: acute Qualified Code(s): M25.511 - Pain in right shoulder Disposition: HOME / SELF CARE / HOMELESS Is pt being admited?: No Does the pt Need Aspirin: No Condition: Stable Instructions: How to Use Cold Therapy, [id number], Shoulder Pain, [id number], Musculoskeletal Pain, Joint Pain, [id number] Additional Instructions: Take medications as prescribed. Follow-up with primary care provider if no improvement or worsening symptoms. Prescriptions: Cyclobenzaprine [Flexeril] 10 mg PO TID PRN #21 tab PRN Reason: Muscle Spasm Lidocaine [Lidoderm] 1 each TP DAILY PRN #10 patch PRN Reason: Pain, Moderate (4-6) Naproxen [Naprosyn] 500 mg PO BID #14 tab Referrals: ZOILA DAVALOS MD [Referring] - 3-5 Days Time of Disposition: 10:51
== END 2021-06-19 11:14 | disposition home or self-care (01) ==
LOC: ED 09:19
DX: M25.511 Pain in right shoulder (principal); J44.9 Chronic obstructive pulmonary disease, unspecified; G89.29 Other chronic pain; F17.210 Nicotine dependence, cigarettes, uncomplicated; Z79.899 Other long term (current) drug therapy; Z88.5 Allergy status to narcotic agent; Z88.8 Allergy status to other drugs, medicaments and biological substances
CPT/HCPCS: 73030; 99283; J8540